=== PATIENT | male | born 1995 | race African-American/Black ===

== ENCOUNTER 2022-12-26 17:42 | Inpatient (IN) | payer OTHER ==
[2022-12-26 21:16] VITALS: BMI 23.5
[2022-12-26] MEDS ORDERED: MAGNESIUM HYDROX 2400MG/30ML ORAL SUSPENSION 30 ML CUP PO PRN (22:30)
[2022-12-26] MEDS ORDERED: NALOXONE HCL (KLOXXADO) 8 MG SPRAY NS PRN (22:30)
[2022-12-26] MEDS ORDERED: guaiFENesin 600 MG TABLET.ER (FP) PO PRN (22:30)
[2022-12-26] MEDS ORDERED: COLLOIDAL OATMEAL 1 BAR EACH TP PRN (22:30)
[2022-12-26] MEDS ORDERED: NALOXONE HCL 0.4 MG/ML VIAL IM PRN (22:30)
[2022-12-26] MEDS ORDERED: LOPERAMIDE HCL 2 MG CAPSULE PO PRN (22:30)
[2022-12-26] MEDS ORDERED: BENZONATATE 200 MG CAPSULE PO PRN (22:30)
[2022-12-26] MEDS ORDERED: ACETAMINOPHEN 325 MG TABLET (FP) PO PRN (22:30)
[2022-12-26] MEDS ORDERED: IBUPROFEN 600 MG TABLET (FP) PO PRN (22:30)
[2022-12-26] MEDS ORDERED: POLYETHYLENE GLYCOL (HEALTHYLAX) 3350 17 GM PACKET PO PRN (22:30)
[2022-12-26] MEDS ORDERED: MAG HYDROX/AL HYDROX/SIMETH 30 ML UNIT-DOSE CUP PO PRN (22:30)
[2022-12-26] MEDS ORDERED: BENZOCAINE/MENTHOL (CHLORASEPTIC ) LOZENGE MM PRN (22:30)
[2022-12-26] MEDS ORDERED: IBUPROFEN 400 MG TABLET (FP) PO PRN (22:30)
[2022-12-27] MEDS: MELATONIN 5 MG TABLETS PO SCH ×2 (01:05→21:19)
[2022-12-27] MEDS ORDERED: TUBERCULIN PPD 5 TU/0.1ML SYRINGE (IN PATIENT USE ONLY) ID ONE (08:00)
[2022-12-27] MEDS: PRENATAL VITAMINS W/ FOLIC ACID TABLET (FP) PO SCH (09:52)
[2022-12-27 11:09] LABS: HEMATOCRIT 45.6 % (35.4-49); HEMOGLOBIN 14.4 GM/dL (11.7-16.9); MCH 26.5 pg (25.7-33.7); MCHC 31.5 g/dl (32.0-35.9); MEAN CELL VOLUME 84.1 fl (80-96); MEAN PLT VOLUME 7.9 fl (7.5-11.1); PLATELET COUNT 252 10^3/uL (134-434); RBC 5.42 M/mm3 (4.00-5.60); RDW 14.2 % (11.9-15.9); WHITE BLOOD COUNT 5.1 K/mm3 (4.0-10.0)
[2022-12-27 11:23] LABS: CHLORIDE 104 mmol/L (98-107); POTASSIUM 3.9 mmol/L (3.5-5.1); SODIUM 140 mmol/L (136-145)
[2022-12-27 11:31] LABS: GLUCOSE,RANDOM 88 mg/dL (74-106); SGPT/ALT 34 U/L (13-61)
[2022-12-27 11:32] LABS: ALBUMIN 3.4 g/dl (3.4-5.0); BILIRUBIN,TOTAL 0.2 mg/dL (0.2-1); BLOOD UREA NITROGEN 15.4 mg/dL (7-18); CALCIUM 8.8 mg/dL (8.5-10.1); CREATININE 1.1 mg/dL (0.55-1.3); TOT PROT 6.2 g/dl (6.4-8.2)
[2022-12-27 11:33] LABS: ANION GAP 7 mmol/L (4-13); CO2 29 mmol/L (21-32)
[2022-12-27 11:34] LABS: ALK PHOS 104 U/L (45-117)
[2022-12-27 11:35] LABS: SGOT/AST 16 U/L (15-37)
[2022-12-27] MEDS: LITHIUM CARBONATE 300 MG CAPSULE PO SCH ×2 (12:50→21:19)
[2022-12-27] MEDS: clonazePAM 0.5 MG ODT TABLETS SL SCH ×2 (12:50→21:21)
[2022-12-27] MEDS: risperiDONE 3 MG TABLET PO SCH (12:50)
[2022-12-27 13:03] LABS: SYPHILIS W/ RPR CONF NON-REACTIVE (NONREACTIVE)
[2022-12-27] MEDS ORDERED: LITHIUM CARBONATE 300 MG CAPSULE PO SCH (14:00)
[2022-12-27 17:29] LABS: URINE APPEARANCE CLEAR; URINE BILIRUBIN NEGATIVE (NEGATIVE); URINE COLOR YELLOW; URINE GLUCOSE (UA) NEGATIVE (NEGATIVE); URINE KETONE NEGATIVE (NEGATIVE); URINE LEUK ESTERASE NEGATIVE (NEGATIVE); URINE NITRITE NEGATIVE (NEGATIVE); URINE PROTEIN NEGATIVE (NEGATIVE); URINE UROBILINOGEN 0.2 mg/dL (0.2-1.0)
[2022-12-27] MEDS: THIAMINE HCL 100 MG TABLET (FP) PO SCH (21:19)
[2022-12-28] MEDS: clonazePAM 0.5 MG ODT TABLETS SL SCH ×2 (10:31→21:08)
[2022-12-28] MEDS: PRENATAL VITAMINS W/ FOLIC ACID TABLET (FP) PO SCH (10:32)
[2022-12-28] MEDS: LITHIUM CARBONATE 300 MG CAPSULE PO SCH ×2 (10:32→21:08)
[2022-12-28] MEDS: risperiDONE 3 MG TABLET PO SCH (10:32)
[2022-12-28] MEDS: THIAMINE HCL 100 MG TABLET (FP) PO SCH (21:08)
[2022-12-28] MEDS: MELATONIN 5 MG TABLETS PO SCH (21:09)
[2022-12-29] MEDS: LITHIUM CARBONATE 300 MG CAPSULE PO SCH ×2 (09:45→21:24)
[2022-12-29] MEDS: risperiDONE 3 MG TABLET PO SCH (09:45)
[2022-12-29] MEDS: PRENATAL VITAMINS W/ FOLIC ACID TABLET (FP) PO SCH (09:45)
[2022-12-29] MEDS: clonazePAM 0.5 MG ODT TABLETS SL SCH ×2 (09:45→21:24)
[2022-12-29] MEDS: MELATONIN 5 MG TABLETS PO SCH (21:24)
[2022-12-29] MEDS: THIAMINE HCL 100 MG TABLET (FP) PO SCH (21:24)
[2022-12-30] MEDS: clonazePAM 0.5 MG ODT TABLETS SL SCH ×2 (10:17→21:31)
[2022-12-30] MEDS: LITHIUM CARBONATE 300 MG CAPSULE PO SCH ×2 (10:17→21:31)
[2022-12-30] MEDS: PRENATAL VITAMINS W/ FOLIC ACID TABLET (FP) PO SCH (10:17)
[2022-12-30] MEDS: risperiDONE 3 MG TABLET PO SCH (10:17)
[2022-12-30] MEDS: THIAMINE HCL 100 MG TABLET (FP) PO SCH (21:31)
[2022-12-30] MEDS: MELATONIN 5 MG TABLETS PO SCH (21:31)
[2022-12-31] MEDS: LITHIUM CARBONATE 300 MG CAPSULE PO SCH ×2 (09:51→21:03)
[2022-12-31] MEDS: clonazePAM 0.5 MG ODT TABLETS SL SCH ×2 (09:51→21:03)
[2022-12-31] MEDS: risperiDONE 3 MG TABLET PO SCH (09:51)
[2022-12-31] MEDS: PRENATAL VITAMINS W/ FOLIC ACID TABLET (FP) PO SCH (09:51)
[2022-12-31] MEDS: THIAMINE HCL 100 MG TABLET (FP) PO SCH (21:03)
[2022-12-31] MEDS: MELATONIN 5 MG TABLETS PO SCH (21:03)
[2023-01-01] MEDS: clonazePAM 0.5 MG ODT TABLETS SL SCH ×2 (10:11→21:21)
[2023-01-01] MEDS: PRENATAL VITAMINS W/ FOLIC ACID TABLET (FP) PO SCH (10:11)
[2023-01-01] MEDS: risperiDONE 3 MG TABLET PO SCH (10:11)
[2023-01-01] MEDS: LITHIUM CARBONATE 300 MG CAPSULE PO SCH ×2 (10:11→21:21)
[2023-01-01] MEDS ORDERED: ERYTHROMYCIN 0.5% OPHTHALMIC OINTMENT 3.5 GM TUBE OU SCH (13:15)
[2023-01-01] MEDS: MELATONIN 5 MG TABLETS PO SCH (21:21)
[2023-01-01] MEDS: THIAMINE HCL 100 MG TABLET (FP) PO SCH (21:21)
[2023-01-02] MEDS: hydrOXYzine PAMOATE 25 MG CAPSULE (FP) PO PRN (06:27)
[2023-01-02] MEDS: clonazePAM 0.5 MG ODT TABLETS SL SCH ×2 (09:46→21:16)
[2023-01-02] MEDS: risperiDONE 3 MG TABLET PO SCH (09:46)
[2023-01-02] MEDS: PRENATAL VITAMINS W/ FOLIC ACID TABLET (FP) PO SCH (09:46)
[2023-01-02] MEDS: LITHIUM CARBONATE 300 MG CAPSULE PO SCH ×2 (09:46→21:15)
[2023-01-02] MEDS: MELATONIN 5 MG TABLETS PO SCH (21:15)
[2023-01-02] MEDS: THIAMINE HCL 100 MG TABLET (FP) PO SCH (21:15)
[2023-01-02] MEDS: ERYTHROMYCIN 0.5% OPHTHALMIC OINTMENT 3.5 GM TUBE OU SCH (21:17)
[2023-01-03] MEDS: hydrOXYzine PAMOATE 25 MG CAPSULE (FP) PO PRN (06:23)
[2023-01-03] MEDS: PRENATAL VITAMINS W/ FOLIC ACID TABLET (FP) PO SCH (09:54)
[2023-01-03] MEDS: LITHIUM CARBONATE 300 MG CAPSULE PO SCH ×2 (09:55→21:08)
[2023-01-03] MEDS: risperiDONE 3 MG TABLET PO SCH (09:55)
[2023-01-03] MEDS: clonazePAM 0.5 MG ODT TABLETS SL SCH ×2 (09:55→21:10)
[2023-01-03] MEDS: THIAMINE HCL 100 MG TABLET (FP) PO SCH (21:08)
[2023-01-03] MEDS: ERYTHROMYCIN 0.5% OPHTHALMIC OINTMENT 3.5 GM TUBE OU SCH (21:09)
[2023-01-03] MEDS: MELATONIN 5 MG TABLETS PO SCH (21:09)
[2023-01-04] MEDS: PRENATAL VITAMINS W/ FOLIC ACID TABLET (FP) PO SCH (09:53)
[2023-01-04] MEDS: risperiDONE 3 MG TABLET PO SCH (09:54)
[2023-01-04] MEDS: LITHIUM CARBONATE 300 MG CAPSULE PO SCH ×2 (09:54→21:03)
[2023-01-04] MEDS: clonazePAM 0.5 MG ODT TABLETS SL SCH ×2 (09:54→21:03)
[2023-01-04] MEDS: MELATONIN 5 MG TABLETS PO SCH (21:03)
[2023-01-04] MEDS: ERYTHROMYCIN 0.5% OPHTHALMIC OINTMENT 3.5 GM TUBE OU SCH (21:03)
[2023-01-04] MEDS: THIAMINE HCL 100 MG TABLET (FP) PO SCH (21:03)
[2023-01-05] MEDS: risperiDONE 3 MG TABLET PO SCH (09:59)
[2023-01-05] MEDS: PRENATAL VITAMINS W/ FOLIC ACID TABLET (FP) PO SCH (09:59)
[2023-01-05] MEDS: LITHIUM CARBONATE 300 MG CAPSULE PO SCH ×2 (09:59→21:21)
[2023-01-05] MEDS: clonazePAM 0.5 MG ODT TABLETS SL SCH ×2 (09:59→21:21)
[2023-01-05] MEDS: THIAMINE HCL 100 MG TABLET (FP) PO SCH (21:21)
[2023-01-05] MEDS: MELATONIN 5 MG TABLETS PO SCH (21:21)
[2023-01-05] MEDS: ERYTHROMYCIN 0.5% OPHTHALMIC OINTMENT 3.5 GM TUBE OU SCH (21:22)
[2023-01-06] MEDS: risperiDONE 3 MG TABLET PO SCH (09:38)
[2023-01-06] MEDS: clonazePAM 0.5 MG ODT TABLETS SL SCH ×2 (09:38→21:24)
[2023-01-06] MEDS: LITHIUM CARBONATE 300 MG CAPSULE PO SCH ×2 (09:38→21:24)
[2023-01-06] MEDS: PRENATAL VITAMINS W/ FOLIC ACID TABLET (FP) PO SCH (09:39)
[2023-01-06] MEDS: MELATONIN 5 MG TABLETS PO SCH (21:25)
[2023-01-06] MEDS: ERYTHROMYCIN 0.5% OPHTHALMIC OINTMENT 3.5 GM TUBE OU SCH (21:25)
[2023-01-06] MEDS: THIAMINE HCL 100 MG TABLET (FP) PO SCH (21:25)
[2023-01-07] MEDS: PRENATAL VITAMINS W/ FOLIC ACID TABLET (FP) PO SCH (09:34)
[2023-01-07] MEDS: LITHIUM CARBONATE 300 MG CAPSULE PO SCH ×2 (09:34→21:03)
[2023-01-07] MEDS: clonazePAM 0.5 MG ODT TABLETS SL SCH ×2 (09:34→21:03)
[2023-01-07] MEDS: risperiDONE 3 MG TABLET PO SCH (09:34)
[2023-01-07] MEDS: THIAMINE HCL 100 MG TABLET (FP) PO SCH (21:03)
[2023-01-07] MEDS: ERYTHROMYCIN 0.5% OPHTHALMIC OINTMENT 3.5 GM TUBE OU SCH (21:03)
[2023-01-07] MEDS: MELATONIN 5 MG TABLETS PO SCH (21:03)
[2023-01-08] MEDS: clonazePAM 0.5 MG ODT TABLETS SL SCH ×2 (10:00→21:18)
[2023-01-08] MEDS: PRENATAL VITAMINS W/ FOLIC ACID TABLET (FP) PO SCH (10:00)
[2023-01-08] MEDS: LITHIUM CARBONATE 300 MG CAPSULE PO SCH ×2 (10:00→21:17)
[2023-01-08] MEDS: risperiDONE 3 MG TABLET PO SCH (10:00)
[2023-01-08] MEDS: MELATONIN 5 MG TABLETS PO SCH (21:17)
[2023-01-08] MEDS: THIAMINE HCL 100 MG TABLET (FP) PO SCH (21:17)
[2023-01-08] MEDS: ERYTHROMYCIN 0.5% OPHTHALMIC OINTMENT 3.5 GM TUBE OU SCH (21:18)
[2023-01-09] MEDS: PRENATAL VITAMINS W/ FOLIC ACID TABLET (FP) PO SCH (09:55)
[2023-01-09] MEDS: LITHIUM CARBONATE 300 MG CAPSULE PO SCH ×2 (09:56→21:06)
[2023-01-09] MEDS: risperiDONE 3 MG TABLET PO SCH (09:56)
[2023-01-09] MEDS: clonazePAM 0.5 MG ODT TABLETS SL SCH ×3 (09:56→21:06)
[2023-01-09] MEDS: THIAMINE HCL 100 MG TABLET (FP) PO SCH (21:06)
[2023-01-09] MEDS: MELATONIN 5 MG TABLETS PO SCH (21:06)
[2023-01-10] MEDS: PRENATAL VITAMINS W/ FOLIC ACID TABLET (FP) PO SCH (10:22)
[2023-01-10] MEDS: risperiDONE 3 MG TABLET PO SCH (10:22)
[2023-01-10] MEDS: clonazePAM 0.5 MG ODT TABLETS SL SCH ×2 (10:22→21:16)
[2023-01-10] MEDS: LITHIUM CARBONATE 300 MG CAPSULE PO SCH ×2 (10:22→21:16)
[2023-01-10] MEDS: THIAMINE HCL 100 MG TABLET (FP) PO SCH (21:16)
[2023-01-10] MEDS: MELATONIN 5 MG TABLETS PO SCH (21:16)
[2023-01-11] MEDS: LITHIUM CARBONATE 300 MG CAPSULE PO SCH ×2 (09:58→21:33)
[2023-01-11] MEDS: PRENATAL VITAMINS W/ FOLIC ACID TABLET (FP) PO SCH (09:58)
[2023-01-11] MEDS: risperiDONE 3 MG TABLET PO SCH (09:59)
[2023-01-11] MEDS: clonazePAM 0.5 MG ODT TABLETS SL SCH ×2 (09:59→21:33)
[2023-01-11] MEDS: THIAMINE HCL 100 MG TABLET (FP) PO SCH (21:33)
[2023-01-11] MEDS: MELATONIN 5 MG TABLETS PO SCH (21:33)
[2023-01-12] MEDS: PRENATAL VITAMINS W/ FOLIC ACID TABLET (FP) PO SCH (09:44)
[2023-01-12] MEDS: clonazePAM 0.5 MG ODT TABLETS SL SCH ×2 (09:44→21:36)
[2023-01-12] MEDS: risperiDONE 3 MG TABLET PO SCH (09:45)
[2023-01-12] MEDS: LITHIUM CARBONATE 300 MG CAPSULE PO SCH ×2 (09:45→21:36)
[2023-01-12] MEDS: THIAMINE HCL 100 MG TABLET (FP) PO SCH (21:35)
[2023-01-12] MEDS: MELATONIN 5 MG TABLETS PO SCH (21:35)
[2023-01-13] MEDS: LITHIUM CARBONATE 300 MG CAPSULE PO SCH ×2 (09:12→21:26)
[2023-01-13] MEDS: PRENATAL VITAMINS W/ FOLIC ACID TABLET (FP) PO SCH (09:12)
[2023-01-13] MEDS: clonazePAM 0.5 MG ODT TABLETS SL SCH ×2 (09:12→21:26)
[2023-01-13] MEDS: risperiDONE 3 MG TABLET PO SCH (09:12)
[2023-01-13] MEDS: THIAMINE HCL 100 MG TABLET (FP) PO SCH (21:26)
[2023-01-13] MEDS: MELATONIN 5 MG TABLETS PO SCH (21:26)
[2023-01-14] MEDS: risperiDONE 3 MG TABLET PO SCH (09:50)
[2023-01-14] MEDS: PRENATAL VITAMINS W/ FOLIC ACID TABLET (FP) PO SCH (09:50)
[2023-01-14] MEDS: LITHIUM CARBONATE 300 MG CAPSULE PO SCH ×2 (09:50→21:35)
[2023-01-14] MEDS: clonazePAM 0.5 MG ODT TABLETS SL SCH ×2 (09:50→21:35)
[2023-01-14] MEDS: THIAMINE HCL 100 MG TABLET (FP) PO SCH (21:35)
[2023-01-14] MEDS: MELATONIN 5 MG TABLETS PO SCH (21:35)
[2023-01-15] MEDS: LITHIUM CARBONATE 300 MG CAPSULE PO SCH ×2 (09:02→21:10)
[2023-01-15] MEDS: risperiDONE 3 MG TABLET PO SCH (09:02)
[2023-01-15] MEDS: clonazePAM 0.5 MG ODT TABLETS SL SCH ×2 (09:02→21:10)
[2023-01-15] MEDS: PRENATAL VITAMINS W/ FOLIC ACID TABLET (FP) PO SCH (09:02)
[2023-01-15] MEDS: MELATONIN 5 MG TABLETS PO SCH (21:10)
[2023-01-15] MEDS: THIAMINE HCL 100 MG TABLET (FP) PO SCH (21:10)
[2023-01-16] MEDS: clonazePAM 0.5 MG ODT TABLETS SL SCH (10:05)
[2023-01-16] MEDS: LITHIUM CARBONATE 300 MG CAPSULE PO SCH ×2 (10:05→21:17)
[2023-01-16] MEDS: risperiDONE 3 MG TABLET PO SCH (10:05)
[2023-01-16] MEDS: PRENATAL VITAMINS W/ FOLIC ACID TABLET (FP) PO SCH (10:05)
[2023-01-16] MEDS: THIAMINE HCL 100 MG TABLET (FP) PO SCH (21:16)
[2023-01-16] MEDS: MELATONIN 5 MG TABLETS PO SCH (21:17)
[2023-01-17] MEDS: risperiDONE 3 MG TABLET PO SCH (09:42)
[2023-01-17] MEDS: LITHIUM CARBONATE 300 MG CAPSULE PO SCH ×2 (09:42→21:15)
[2023-01-17] MEDS: clonazePAM 0.5 MG ODT TABLETS SL SCH ×2 (09:42→21:15)
[2023-01-17] MEDS: PRENATAL VITAMINS W/ FOLIC ACID TABLET (FP) PO SCH (09:42)
[2023-01-17] MEDS: MELATONIN 5 MG TABLETS PO SCH (21:15)
[2023-01-17] MEDS: THIAMINE HCL 100 MG TABLET (FP) PO SCH (21:15)
[2023-01-18] MEDS: risperiDONE 3 MG TABLET PO SCH (10:28)
[2023-01-18] MEDS: LITHIUM CARBONATE 300 MG CAPSULE PO SCH ×2 (10:28→21:09)
[2023-01-18] MEDS: PRENATAL VITAMINS W/ FOLIC ACID TABLET (FP) PO SCH (10:28)
[2023-01-18] MEDS: clonazePAM 0.5 MG ODT TABLETS SL SCH ×2 (10:28→21:10)
[2023-01-18] MEDS: MELATONIN 5 MG TABLETS PO SCH (21:09)
[2023-01-18] MEDS: THIAMINE HCL 100 MG TABLET (FP) PO SCH (21:09)
[2023-01-19] MEDS: clonazePAM 0.5 MG ODT TABLETS SL SCH ×2 (09:58→21:21)
[2023-01-19] MEDS: PRENATAL VITAMINS W/ FOLIC ACID TABLET (FP) PO SCH (09:58)
[2023-01-19] MEDS: LITHIUM CARBONATE 300 MG CAPSULE PO SCH ×2 (09:58→21:21)
[2023-01-19] MEDS: risperiDONE 3 MG TABLET PO SCH (09:59)
[2023-01-19] MEDS: MELATONIN 5 MG TABLETS PO SCH (21:21)
[2023-01-19] MEDS: THIAMINE HCL 100 MG TABLET (FP) PO SCH (21:21)
[2023-01-20] MEDS: clonazePAM 0.5 MG ODT TABLETS SL SCH ×2 (09:46→21:41)
[2023-01-20] MEDS: LITHIUM CARBONATE 300 MG CAPSULE PO SCH ×2 (09:46→21:40)
[2023-01-20] MEDS: risperiDONE 3 MG TABLET PO SCH (09:46)
[2023-01-20] MEDS: PRENATAL VITAMINS W/ FOLIC ACID TABLET (FP) PO SCH (09:46)
[2023-01-20] MEDS: THIAMINE HCL 100 MG TABLET (FP) PO SCH (21:40)
[2023-01-20] MEDS: MELATONIN 5 MG TABLETS PO SCH (21:41)
[2023-01-21] MEDS: LITHIUM CARBONATE 300 MG CAPSULE PO SCH ×2 (10:17→21:22)
[2023-01-21] MEDS: risperiDONE 3 MG TABLET PO SCH (10:17)
[2023-01-21] MEDS: PRENATAL VITAMINS W/ FOLIC ACID TABLET (FP) PO SCH (10:17)
[2023-01-21] MEDS: clonazePAM 0.5 MG ODT TABLETS SL SCH ×2 (10:17→21:23)
[2023-01-21] MEDS: MELATONIN 5 MG TABLETS PO SCH (21:22)
[2023-01-21] MEDS: THIAMINE HCL 100 MG TABLET (FP) PO SCH (21:22)
[2023-01-22] MEDS: clonazePAM 0.5 MG ODT TABLETS SL SCH ×2 (10:02→21:23)
[2023-01-22] MEDS: LITHIUM CARBONATE 300 MG CAPSULE PO SCH ×2 (10:02→21:23)
[2023-01-22] MEDS: risperiDONE 3 MG TABLET PO SCH (10:02)
[2023-01-22] MEDS: PRENATAL VITAMINS W/ FOLIC ACID TABLET (FP) PO SCH (10:02)
[2023-01-22] MEDS: MELATONIN 5 MG TABLETS PO SCH (21:23)
[2023-01-22] MEDS: THIAMINE HCL 100 MG TABLET (FP) PO SCH (21:23)
[2023-01-23 07:12] VITALS: BP 115/69; PULSE 89; RESP 18; TEMP 97.8
[2023-01-23] MEDS: clonazePAM 0.5 MG ODT TABLETS SL SCH (09:49)
[2023-01-23] MEDS: PRENATAL VITAMINS W/ FOLIC ACID TABLET (FP) PO SCH (09:49)
[2023-01-23] MEDS: LITHIUM CARBONATE 300 MG CAPSULE PO SCH (09:50)
[2023-01-23] MEDS: risperiDONE 3 MG TABLET PO SCH (09:50)
== END 2023-01-23 10:03 | disposition home or self-care (01) | DRG 772 ==
LOC: YASAS 17:42 → Y3W 23:56
PROVIDERS: ADMIT Allergy & Immunology; ATTEND Psychiatry & Neurology Pain Medicine
PROC: HZ42ZZZ Group Counseling for Substance Abuse Treatment, Cognitive-Behavioral (ICD-10-PCS; principal; 2022-12-26)
DX: F10.20 Alcohol dependence, uncomplicated (principal); F14.20 Cocaine dependence, uncomplicated; F12.20 Cannabis dependence, uncomplicated; F25.9 Schizoaffective disorder, unspecified; F31.9 Bipolar disorder, unspecified; F19.282 Other psychoactive substance dependence with psychoactive substance-induced sleep disorder; H00.014 Hordeolum externum left upper eyelid; H00.011 Hordeolum externum right upper eyelid; R73.03 Prediabetes; Z62.810 Personal history of physical and sexual abuse in childhood; Z91.410 Personal history of adult physical and sexual abuse
CPT/HCPCS: 36415; 80053; 80178; 80307; 81003; 85027; 86780; 86803; 87635; 87811; 93005; 93010